=== PATIENT | female | born 1985 ===

== ENCOUNTER 2018-06-07 11:06 | Emergency (ER) | payer BC ==
[2018-06-07 11:37] VITALS: RESP 18
[2018-06-07] MEDS ORDERED: Iohexol 240 (50 ml) PO STA (11:43)
--- NOTE | 2018-06-07 11:53 | C.PDOC ---
History Of Present Illness 33 years old female presents to ED for complaints of dull and sharp(sometimes) midline right greater than left lower quadrant abdominal pain that began 1 week ago. Patient also reports associated fever of 100.3 yesterday, but denies fever today. Patient states pain is currently 3/10. Denies changes in appetite, Hx of hospitalization, or past medical problems. Patient states pain worsened last night(5/10) which prompted the ED visit today. She also states she went to [facility] today [facility]. LNMP was 05/31/18. Patient also denies taking any medications for relief. PMD: * Patient does not have a PMD. Time Seen by Provider: 06/07/18 11:32 Chief Complaint (Nursing): Abdominal Pain History Per: Patient History/Exam Limitations: no limitations Onset/Duration Of Symptoms: Hrs Current Symptoms Are (Timing): Still Present Location Of Pain/Discomfort: RLQ, LLQ Radiation Of Pain To:: None Quality Of Discomfort: "Pain" Associated Symptoms: Fever. denies: Chills, Nausea, Vomiting, Diarrhea, Urinary Symptoms Exacerbating Factors: None Alleviating Factors: None Last Bowel Movement: Today Recent travel outside of the [place]: No Abnormal Vaginal Bleeding: No Last Menstral Period: 05/31/18 Past Medical History Reviewed: Historical Data, Nursing Documentation, Vital Signs Vital Signs: Last Vital Signs Temp 99.4 F 06/07/18 11:23 Pulse 84 06/07/18 11:23 Resp 18 06/07/18 11:23 BP 118/77 06/07/18 11:23 Pulse Ox 97 06/07/18 11:23 - Medical History PMH: No Chronic Diseases Family History: States: Diabetes, Hypertension, Other Other Family History: Hyperlipidemia - Social History Hx Alcohol Use: Yes Hx Substance Use: No - Immunization History Hx Tetanus Toxoid Vaccination: No Hx Influenza Vaccination: No Hx Pneumococcal Vaccination: No Review Of Systems Constitutional: Positive for: Fever. Negative for: Chills Gastrointestinal: Positive for: Abdominal Pain. Negative for: Nausea, Vomiting, Diarrhea, Constipation Genitourinary: Negative for: Dysuria Skin: Negative for: Rash Neurological: Negative for: Weakness, Numbness Physical Exam - Physical Exam Appears: Non-toxic, No Acute Distress Skin: Normal Color, Warm, Dry, No Rash Head: Atraumatic, Normacephalic Eye(s): bilateral: Normal Inspection, PERRL, EOMI Oral Mucosa: Moist Neck: Normal ROM, Supple Chest: Symmetrical, No Tenderness Cardiovascular: Rhythm Regular Respiratory: Normal Breath Sounds, No Accessory Muscle Use, No Rales, No Rhonchi, No Wheezing Gastrointestinal/Abdominal: Bowel Sounds (Active ), Soft, Other (Mild RLQ and LLQ Pain ) Extremity: Normal ROM Extremity: Bilateral: Atraumatic, Normal Color And Temperature, Normal ROM Pulses: Left Radial: Normal, Right Radial: Normal Neurological/Psych: Oriented x3, Normal Speech Gait: Steady ED Course And Treatment - Laboratory Results Result Diagrams: 06/07/18 11:50 06/07/18 11:50 O2 Sat by Pulse Oximetry: 97 (RA) Pulse Ox Interpretation: Normal Medical Decision Making Medical Decision Making: Plan: * Blood work * Urinalysis Disposition - Disposition Disposition: HOME/ ROUTINE Disposition Time: 15:52 Condition: STABLE Additional Instructions: Ms. Goodwin, thank you for letting us take care of you today. Return to the ER if your symptoms worsen, or if any problems. Please follow up with your primary care physician. Take the medications listed below as prescribed. Prescriptions: levoFLOXacin [Levaquin] 1 tab PO DAILY #10 tab Metronidazole [Flagyl] 1 tab PO Q8 #30 tab Instructions: Inflammatory Bowel Disease, Urinary Tract Infections in Adults Forms: [facility] (Cuban) Print Language: ARMENIAN - POA Present On Arrival: None - Clinical Impression Clinical Impression: Urinary tract infection, Enteritis - Scribe Statement The provider has reviewed the documentation as recorded by the Jacinta Esparza All medical record entries made by the Jacinta were at my direction and personally dictated by me. I have reviewed the chart and agree that the record accurately reflects my personal performance of the history, physical exam, medical decision making, and the department course for this patient. I have also personally directed, reviewed, and agree with the discharge instructions and disposition.
[2018-06-07 11:55] LABS: BASO % 0.5 % (0.0-2.0); EOS % 0.4 % (0.0-4.0); HEMOGLOBIN 12.6 g/dL (11.0-16.0); LYMPH % 19.3 % (20.0-40.0); MEAN CELL VOLUME 98.9 fL (81.0-99.0); MEAN CORPUSCULAR HEMOGLOBIN 34.5 pg (27.0-31.0); MEAN CORPUSCULAR HGB CONC 34.9 g/dL (33.0-37.0); MEAN PLATELET VOLUME 8.2 fL (7.2-11.7); MONO # 0.8 K/uL (0.0-0.8); MONO % 8.1 % (0.0-10.0); NEUT # 7.4 K/uL (1.8-7.0); NEUT % 71.7 % (50.0-75.0); NRBC % 0.1 % (0.0-2.0); RBC 3.66 Mil/uL (3.80-5.20); RED CELL DISTRIBUTION WIDTH 12.4 % (11.5-14.5); WHITE BLOOD COUNT 10.3 K/uL (4.8-10.8)
[2018-06-07 12:03] LABS: SQUAMOUS EPITHIAL 1 /hpf (0-5); URINE BACTERIA RARE (<OCC); URINE BILIRUBIN NEGATIVE (NEGATIVE); URINE BLOOD 3+ (NEGATIVE); URINE CLARITY Clear (Clear); URINE COLOR Yellow (YELLOW); URINE GLUCOSE (UA) NORMAL (Normal); URINE LEUKOCYTE ESTERASE 2+ Leu/uL (Negative); URINE PROTEIN 1+ mg/dL (NEGATIVE); URINE UROBILINOGEN NORMAL mg/dL (0.2-1.0)
[2018-06-07 12:04] LABS: HCG,QUALITATIVE URINE NEGATIVE (NEGATIVE)
[2018-06-07 12:09] LABS: ALB/GLOB RATIO 1.2 (1.0-2.1); ALBUMIN 4.4 g/dL (3.5-5.0); ALT/SGPT 26 U/L (9-52); AST/SGOT 28 U/L (14-36); BLOOD UREA NITROGEN 8 mg/dL (7-17); CALCIUM 9.2 mg/dl (8.6-10.4); GFR NON-AFRICAN AMERICAN > 60; LIPASE 50 U/L (23-300)
[2018-06-07] MEDS ORDERED: Iohexol 240 (50 ml) ONE (12:28)
[2018-06-07] MEDS ORDERED: Iodixanol 320 MG/ML 100 ML BOTTLE IV ONE (14:34)
--- NOTE | 2018-06-07 15:31 | CT ---
Date of service: 06/07/2018 PROCEDURE: CT Abdomen and Pelvis with contrast HISTORY: RLQ pain r/o appendicitis COMPARISON: None available. TECHNIQUE: CT scan of the abdomen and pelvis was performed after administration of intravenous contrast. Oral contrast was administered. Coronal and sagittal reformatted images were obtained. Contrast dose: 100 mL Visipaque Radiation dose: Total exam DLP = 298.85 mGy-cm. This CT exam was performed using one or more of the following dose reduction techniques: Automated exposure control, adjustment of the mA and/or kV according to patient size, and/or use of iterative reconstruction technique. FINDINGS: LOWER THORAX: The visualized lungs are clear. LIVER: Mild hepatomegaly and fatty liver. Normal homogeneous enhancement. No gross lesion or ductal dilatation. GALLBLADDER AND BILE DUCTS: Well distended. No calcified gallstones, wall thickening or pericholecystic fluid. PANCREAS: Normal in size with homogeneous enhancement. No gross lesion or ductal dilatation. SPLEEN: Normal in size with homogeneous enhancement. Is solitary subcentimeter subcapsular low-attenuation lesion in the interpolar region of the spleen is too small to characterize by CT criteria. ADRENALS: No discrete nodule. KIDNEYS AND URETERS: Normal in size with homogeneous enhancement. No hydronephrosis. No solid mass. VASCULATURE: No aortic aneurysm. There are no aortic atherosclerotic calcifications or mural plaques present. BOWEL: There is mild dilatation of fluid-filled small bowel loops in the left abdomen. The mid and distal small bowel loops are normal in caliber. The colon is unremarkable. No bowel obstruction. APPENDIX: Normal appendix. PERITONEUM: No free fluid. No free air. LYMPH NODES: No enlarged lymph nodes. BLADDER: Well distended and normal in appearance. REPRODUCTIVE: The uterus is normal in size. BONES: No acute fracture. Within normal limits for the patient's age. OTHER FINDINGS: None. IMPRESSION: No CT evidence for acute appendicitis. Mild dilatation of fluid-filled small bowel loops in the left abdomen and multiple air-fluid levels may represent nonspecific acute infectious/inflammatory enteritis. No bowel obstruction.
[2018-06-07 16:10] VITALS: BP 112/74; PULSE 82; TEMP 98.8; O2SAT 99
== END 2018-06-07 16:09 | disposition home or self-care (01) ==
LOC: C.ER 11:06
DX: N39.0 Urinary tract infection, site not specified (principal); K52.9 Noninfective gastroenteritis and colitis, unspecified
CPT/HCPCS: 74177; 80053; 81001; 83690; 84703; 85025; 99284; Q9966; Q9967